=== PATIENT | male | born 1950 | race Hispanic/Latino ===

== ENCOUNTER 2019-07-05 03:55 | Emergency (ER) | payer BC, MEDICARE ==
[2019-07-05 05:30] LABS: #Basophils 0.1 thou/uL (0.0-0.2); #Eosinphils 0.3 thou/uL (0.0-0.7); #Lymphocytes 1.8 thou/uL (1.20-3.40); #Monocytes 0.6 thou/uL (0.11-0.59); #Neutrophils 7.8 thou/uL (1.40-6.50); %Basophils 0.8 % (0.0-1.0); %Eosinophils 2.6 % (0.0-10.0); %Lymphocytes 17.1 % (21.0-51.0); %Neutrophils 73.5 % (42.0-75.0); Hemoglobin 14.9 g/dL (14.0-18.0); Mean Corpuscular Hemoglobin 32.4 pg (27.0-31.0); Mean Corpuscular Volume 95.4 fL (78.0-98.0); Mean Platelet Volume 11.4 fL (7.4-10.4); Platelet Count 173 thou/uL (130-400); Red Blood Cell (RBC) Count 4.59 mill/uL (4.70-6.10); White Blood Cell (WBC) Count 10.5 thou/uL (4.8-10.8)
[2019-07-05] MEDS ORDERED: Mag-Al 1200 mg/1200 mg/30 ML UDCUP ONE (05:32)
[2019-07-05] MEDS ORDERED: Lidocaine Viscous Sol 2% 15 ml UD Cup ONE (05:32)
[2019-07-05 05:43] LABS: Chloride 107 mmol/L (98-107); Sodium 135 mmol/L (136-145)
[2019-07-05 05:47] LABS: Albumin 4.7 g/dL (3.4-4.8)
[2019-07-05 05:49] LABS: Calcium 9.3 mg/dL (7.8-10.44)
[2019-07-05 05:50] LABS: Globulin 3.1 g/dL (2.4-3.5); Glucose 94 mg/dL (80-115); Protein, Total 7.8 g/dL (5.8-8.1)
[2019-07-05 05:51] LABS: Carbon Dioxide 23 mmol/L (23-31)
[2019-07-05 05:52] LABS: Bilirubin, Total Less than 0.2 mg/dL (0.2-1.2)
[2019-07-05 05:53] LABS: Alkaline Phosphatase 97 U/L (40-110); Calc. Creatinine Clearance 0 mL/min (70-130); Estimated GFR-MDRD Greater than 90
[2019-07-05 05:54] LABS: BUN (Urea Nitrogen) 13 mg/dL (8.4-25.7); Potassium 3.7 mmol/L (3.5-5.1)
[2019-07-05 05:55] LABS: AST (SGOT) 24 U/L (5-34)
[2019-07-05 05:56] LABS: ALT (SGPT) 14 U/L (8-55)
[2019-07-05 05:58] LABS: Anion Gap 9 mmol/L (10-20)
[2019-07-05] MEDS ORDERED: Morphine 4 MG/ML VIAL ONE (06:12)
--- NOTE | 2019-07-05 07:40 | RAD ---
EXAM: Single view of the chest HISTORY: Cough and difficulty breathing COMPARISON: 11/11/2012 FINDINGS: Single view of the chest shows a normal sized cardiomediastinal silhouette. There is no marcel dence of consolidation, mass, or pleural effusion. The bones are unremarkable. IMPRESSION: No evidence of acute cardiopulmonary disease
== END 2019-07-05 06:34 | disposition home or self-care (01) ==
LOC: ERS 03:55
DX: R05 Cough (principal); R07.81 Pleurodynia; I10 Essential (primary) hypertension; F17.210 Nicotine dependence, cigarettes, uncomplicated; F32.9 Major depressive disorder, single episode, unspecified
CPT/HCPCS: 71045; 80053; 83880; 84484; 85025; 93005; J2270

== ENCOUNTER 2022-03-04 19:52 | Emergency (ER) | payer MEDICARE ==
[2022-03-04] MEDS ORDERED: Lidocaine 1% PF 5 ML VIAL ONE (20:22)
[2022-03-04] MEDS ORDERED: CEFAZOLIN 2 GM VIAL ONE (20:49)
[2022-03-04] MEDS ORDERED: Ketorolac Tromethamine 30 MG/ML VIAL ONE (20:49)
[2022-03-04] MEDS ORDERED: Boostrix 0.5 ML (Tdap) VIAL (>/=7 yrs of age) ONE (20:49)
[2022-03-04] MEDS ORDERED: Morphine 4 MG/ML VIAL ONE (20:49)
[2022-03-04 21:07] LABS: #Eosinphils 0.2 thou/uL (0.0-0.7); #Lymphocytes 1.4 thou/uL (1.20-3.40); #Monocytes 0.4 thou/uL (0.11-0.59); %Basophils 0.5 % (0.0-1.0); %Eosinophils 3.5 % (0.0-10.0); %Lymphocytes 23.3 % (21.0-51.0); %Monocytes 6.3 % (0.0-10.0); %Neutrophils 66.3 % (42.0-75.0); Hemoglobin 13.8 g/dL (14.0-18.0); Mean Corpuscular HGB CONC 35.2 g/dL (32.0-36.0); Mean Corpuscular Hemoglobin 34.4 pg (27.0-31.0); Mean Corpuscular Volume 97.9 fL (78.0-98.0); Mean Platelet Volume 10.7 fL (7.4-10.4); Platelet Count 160 thou/uL (130-400); RBC Distribution Width 12.1 % (11.5-14.5)
[2022-03-04 21:29] LABS: ALT (SGPT) 12 U/L (8-55); AST (SGOT) 20 U/L (5-34); Albumin 4.4 g/dL (3.4-4.8); Alkaline Phosphatase 73 U/L (40-110); Anion Gap 17 mmol/L (10-20); BUN (Urea Nitrogen) 7 mg/dL (8.4-25.7); Bilirubin, Total 0.4 mg/dL (0.2-1.2); Calc. Creatinine Clearance 0 mL/min (70-130); Calcium 9.1 mg/dL (7.8-10.44); Carbon Dioxide 20 mmol/L (23-31); Chloride 106 mmol/L (98-107); Estimated GFR 97; Globulin 2.4 g/dL (2.4-3.5); Glucose 78 mg/dL (80-115); Magnesium 2.2 mg/dL (1.6-2.6); Potassium 3.7 mmol/L (3.5-5.1); Protein, Total 6.8 g/dL (5.8-8.1); Sodium 139 mmol/L (136-145)
[2022-03-04 21:31] LABS: Acetaminophen Less than 10.0 mcg/mL (10.0-30.0); Alcohol 171 mg/dL (Less than 10); Salicylate Less than 8.0 mg/dL (15.0-30.0)
== END 2022-03-04 22:32 | disposition home or self-care (01) ==
LOC: ERS 19:52
DX: S06.0X9A Concussion with loss of consciousness of unspecified duration, initial encounter (principal); S41.112A Laceration without foreign body of left upper arm, initial encounter; I10 Essential (primary) hypertension; E78.5 Hyperlipidemia, unspecified; F17.210 Nicotine dependence, cigarettes, uncomplicated; Z23 Encounter for immunization; V89.2XXA Person injured in unspecified motor-vehicle accident, traffic, initial encounter
CPT/HCPCS: 12001; 36415; 70450; 71045; 72125; 80053; 80307; 83735; 85025; 90471; 90715; 96374; 96375; J0690; J1885; J2270